=== PATIENT | female | born 1985 | race Caucasian/White ===

== ENCOUNTER 2016-11-30 20:43 | Emergency (ER) | payer OTHER ==
[~2016-11-30] VITALS: Ht 160 cm; Wt 59.4 kg
[2016-11-30 20:59] VITALS: BP 117/70
--- NOTE | 2016-11-30 22:42 | NUR ---
AMBULATED TO ER BED 8
--- NOTE | 2016-11-30 22:45 | NUR ---
Patient being evaluated by physician at bedside.
[2016-11-30] MEDS ORDERED: DICYCLOMINE HCL LIQUID 20 MG, ALUMINUM HYD/MAG/SIMETHICONE 30 ML, LIDOCAINE VISCOUS 2% ... PO ONE ×3 (22:55)
[2016-11-30] MEDS ORDERED: ONDANSETRON 4 MG ODT PO ONE (23:10)
[2016-11-30 23:18] LABS: HEMATOCRIT 35.8 % (36-48); HEMOGLOBIN 11.7 g/dL (12.0-16.0); MEAN CORPUSCULAR HEMOGLOBIN 30 pg (27-31); MEAN CORPUSCULAR HGB CONC 33 g/dL (33-37); MEAN CORPUSCULAR VOLUME 92 fL (80-94); PLATELET COUNT (AUTO) 196 K/uL (140-450); RED CELL DISTRIBUTION WIDTH 14.2 % (11.6-13.7); WHITE BLOOD COUNT (AUTO) 6.2 K/uL (4.8-10.8)
[2016-11-30] MEDS ORDERED: ONDANSETRON 4 MG ODT ONE (23:18)
[2016-11-30 23:29] LABS: ALBUMIN 3.8 g/dL (3.4-5.0); ANION GAP 10.5 (8-16); CARBON DIOXIDE 29.8 mmol/L (21-32); CREATININE 0.8 mg/dL (0.6-1.3); POTASSIUM 3.3 mmol/L (3.5-5.1); TOTAL BILIRUBIN 0.2 mg/dL (0.0-1.0)
--- NOTE | 2016-11-30 23:35 | NUR ---
31Y/F PT. PRESENTS TO ED WITH C/O ABDOMINAL PAIN X 2 DAYS. ALSO STATES FEELING NAUSEATED, NO DIARRHEA. NO MEDICAL HX. AAO X4, AMBULATORY WITH STEADY GAIT. RESPIRATIONS ROOM AIR, EVEN AND UNLABORED. ABDOMEN SOFT AND NON-TENDER. VSS, ER MD MADE AWARE OF PT. STATUS.
[2016-11-30 23:53] LABS: EOSINOPHILS % (MANUAL) 5 % (0-4); LYMPHOCYTES % (MANUAL) 47 % (20-46); MONOCYTES % (MANUAL) 8 % (5-12)
[2016-12-01] MEDS ORDERED: KETOROLAC 30 MG/ML VIAL IM ONE (00:10)
--- NOTE | 2016-12-01 02:04 | NUR ---
Patient discharged with v/s stable. Written and verbal after care instructions given and explained. Patient alert, oriented and verbalized understanding of instructions. Ambulatory with steady gait. All questions addressed prior to discharge. ID band removed. Patient advised to follow up with PMD. Rx of NORCO, ZOFRAN AND OMEPRAZOLE given. Patient educated on indication of medication including possible reaction and side effects. Opportunity to ask questions provided and answered.
[2016-12-01 02:05] VITALS: BP 130/74
== END 2016-12-01 02:05 | disposition home or self-care (01) ==
LOC: MED 20:43
DX: R11.2 Nausea with vomiting, unspecified (principal); K21.9 Gastro-esophageal reflux disease without esophagitis
CPT/HCPCS: 36415; 74176; 80053; 81002; 81025; 83690; 85025; 93005; 96372; 99285; J1885; S0119

== ENCOUNTER 2017-03-25 01:10 | Emergency (ER) | payer OTHER ==
[~2017-03-25] VITALS: Ht 162.6 cm; Wt 58.1 kg
[2017-03-25 01:13] VITALS: BP 103/70
[2017-03-25 01:23] VITALS: BP 103/70
--- NOTE | 2017-03-25 01:27 | NUR ---
PT TO ER OF CHAIR 3 VIA W/C
--- NOTE | 2017-03-25 02:00 | NUR ---
PATIENT LEFT WITHOUT BEING SEEN BY DR. ROBBINS. NO FURTHER CARE PROVIDED FOR PATIENT.
== END 2017-03-25 02:00 | disposition left against medical advice (07) ==
LOC: MED 01:10
DX: R10.9 Unspecified abdominal pain (principal); Z53.21 Procedure and treatment not carried out due to patient leaving prior to being seen by health care provider

== ENCOUNTER 2017-08-17 23:00 | Emergency (ER) | payer OTHER ==
[~2017-08-17] VITALS: Ht 160 cm; Wt 59.5 kg
[2017-08-17 23:11] VITALS: BP 146/88
--- NOTE | 2017-08-18 00:04 | NUR ---
PT AMBULATED TO BED 2
--- NOTE | 2017-08-18 00:13 | NUR ---
32Y/F PT. PRESENTS TO ED WITH C/O ABDOMINAL PAIN WITH N/V/D X 2 WKS. STATES PAIN AT LLQ, ALSO STATES SORE THROAT. AAOX4, AMBULATORY WITH STDEAY GAIT. RESPIRTAIONS ROOM AIR, EVEN AND UNLABORED. SKIN WARM/PINK/DRY. ABDOMEN SOFT, NO DISTENDED, ACTIVE BOWEL SOUND X4, STATES CRAMP PAIN 9/10. VSS, ER MD MADE AWARE OF PT. STATUS.
[2017-08-18] MEDS ORDERED: DICYCLOMINE HCL LIQUID 20 MG, ALUMINUM HYD/MAG/SIMETHICONE 30 ML, LIDOCAINE VISCOUS 2% ... PO ONE ×3 (00:25)
[2017-08-18] MEDS ORDERED: ONDANSETRON 4 MG ODT PO ONE (00:25)
[2017-08-18] MEDS ORDERED: KETOROLAC 30 MG/ML VIAL IM ONE (00:25)
[2017-08-18 00:34] LABS: BASOPHILS % (AUTO) 0.2 % (0.0-2.0); EOSINOPHILS % (AUTO) 0.1 % (0.0-4.0); HEMATOCRIT 34.2 % (36-48); HEMOGLOBIN 11.3 g/dL (12.0-16.0); LYMPHOCYTES % (AUTO) 14.1 % (20.5-51.1); MEAN CORPUSCULAR HEMOGLOBIN 30 pg (27-31); MEAN CORPUSCULAR HGB CONC 33 g/dL (33-37); MEAN CORPUSCULAR VOLUME 90.7 fL (80-94); MONOCYTES # (AUTO) 0.4 K/uL (0.8-1.0); NEUTROPHILS # (AUTO) 5.8 K/uL (1.8-7.7); NEUTROPHILS % (AUTO) 79.6 % (42.2-75.2); PLATELET COUNT (AUTO) 195 K/uL (140-450); RED BLOOD CELL COUNT(AUTO) 3.77 MIL/uL (4.20-5.40); RED CELL DISTRIBUTION WIDTH 14.4 % (11.6-13.7); WHITE BLOOD COUNT (AUTO) 7.3 K/uL (4.8-10.8)
[2017-08-18 00:43] LABS: ANION GAP 10.3 (8-16); CARBON DIOXIDE 28.6 mmol/L (21-32); CREATININE 0.8 mg/dL (0.6-1.3); POTASSIUM 3.9 mmol/L (3.5-5.1)
[2017-08-18 00:50] LABS: TOTAL BILIRUBIN 0.2 mg/dL (0.0-1.0)
--- NOTE | 2017-08-18 00:53 | NUR ---
PO CHALLENGE STARTED, PT GIVEN WATER, WILL CONTINUE TO MONITOR.
--- NOTE | 2017-08-18 01:40 | NUR ---
AWAITING DISCHARGE PAPERWORK FROM EDMD
[2017-08-18 01:54] VITALS: BP 119/74
--- NOTE | 2017-08-18 01:54 | NUR ---
Patient discharged with v/s stable. Written and verbal after care instructions given and explained. Patient alert, oriented and verbalized understanding of instructions. Ambulatory with steady gait. All questions addressed prior to discharge. ID band removed. Patient advised to follow up with PMD. Rx of MYLANTA given. Patient educated on indication of medication including possible reaction and side effects. Opportunity to ask questions provided and answered.
== END 2017-08-18 01:54 | disposition home or self-care (01) ==
LOC: MED 23:00
DX: R10.9 Unspecified abdominal pain (principal); R19.7 Diarrhea, unspecified; R11.10 Vomiting, unspecified; K21.9 Gastro-esophageal reflux disease without esophagitis
CPT/HCPCS: 36415; 80053; 81002; 81025; 83690; 85025; 96372; 99284; J1885; S0119

== ENCOUNTER 2017-12-04 15:54 | Emergency (ER) | payer OTHER ==
[~2017-12-04] VITALS: Ht 160 cm; Wt 57.2 kg
[2017-12-04 16:02] VITALS: BP 112/74
[2017-12-04 17:13] VITALS: BP 112/74
== END 2017-12-04 17:15 | disposition home or self-care (01) ==
LOC: MED 15:54
DX: K41.90 Unilateral femoral hernia, without obstruction or gangrene, not specified as recurrent (principal); K21.9 Gastro-esophageal reflux disease without esophagitis
CPT/HCPCS: 81002; 81025; 99282

== ENCOUNTER 2018-09-10 17:08 | Emergency (ER) | payer OTHER ==
[~2018-09-10] VITALS: Ht 162.6 cm; Wt 59.0 kg
[2018-09-10 17:12] VITALS: BP 118/73
--- NOTE | 2018-09-10 17:25 | NUR ---
C/O SORE THOAT SEVERAL WEEKS, + HEADACHE, GETTING WORSE. . DENIES N/V/D; SKIN IS PINK/WARM/DRY; AAOX4 WITH EVEN AND STEADY GAIT; LUNGS CLEAR BL; HR EVEN AND REGULAR; PT DENIES ANY FEVER, CP, SOB, OR COUGH AT THIS TIME; PATIENT STATES PAIN OF 5/10 AT THIS TIME; VSS; PATIENT POSITIONED FOR COMFORT; HOB ELEVATED; BEDRAILS UP X2; BED DOWN. ER MD MADE AWARE OF PT STATUS.
--- NOTE | 2018-09-10 18:09 | NUR ---
Dr. Donovan evaluating patient at bedside.
[2018-09-10] MEDS ORDERED: ACETAMINOPHEN EXTRA STRENGTH 500 MG TAB PO ONE (18:20)
[2018-09-10] MEDS ORDERED: IBUPROFEN 600 MG TAB PO ONE (18:20)
[2018-09-10] MEDS ORDERED: DEXAMETHASONE 10 MG/ML VIAL IM ONE (18:20)
[2018-09-10 18:54] VITALS: BP 120/70
--- NOTE | 2018-09-10 18:56 | NUR ---
Patient discharged with v/s stable. Written and verbal after care instructions given and explained. Patient alert, oriented and verbalized understanding of instructions. Ambulatory with steady gait. All questions addressed prior to discharge. ID band removed. Patient advised to follow up with PMD. Rx of IBUPROFEN AND PENICILLIN VK given. Patient educated on indication of medication including possible reaction and side effects. Opportunity to ask questions provided and answered.
== END 2018-09-10 18:56 | disposition home or self-care (01) ==
LOC: MED 17:08
DX: J02.9 Acute pharyngitis, unspecified (principal); R51 Headache; K58.9 Irritable bowel syndrome, unspecified; F17.200 Nicotine dependence, unspecified, uncomplicated
CPT/HCPCS: 81025; 96372; 99283; J1100

== ENCOUNTER 2018-11-19 12:02 | Emergency (ER) | payer OTHER ==
[~2018-11-19] VITALS: Ht 160 cm; Wt 61.2 kg
[2018-11-19 12:12] VITALS: BP 114/72
--- NOTE | 2018-11-19 12:14 | NUR ---
PT AMBULATED TO BED
--- NOTE | 2018-11-19 12:30 | NUR ---
PT C/O VAGINAL BLEEDING FOR ONE MONTH , CONSTANT SHARP LLQ ABDOMINAL PAIN X2 WEEKS, BACK PAIN, NAUSEA, DIZZINESS. PATIENT STATES PAIN OF 8/10 AT THIS TIME; VSS; PATIENT POSITIONED FOR COMFORT; HOB ELEVATED; BEDRAILS UP X1; BED DOWN. ER MD MADE AWARE OF PT STATUS.
[2018-11-19 13:39] LABS: BASOPHILS % (AUTO) 0.6 % (0.0-2.0); EOSINOPHILS # (AUTO) 0.1 K/uL (0-0.4); EOSINOPHILS % (AUTO) 2.6 % (0.0-4.0); HEMATOCRIT 34.9 % (36-48); HEMOGLOBIN 11.5 g/dL (12.0-16.0); LYMPHOCYTES # (AUTO) 1.4 K/uL (2.5-16.5); LYMPHOCYTES % (AUTO) 36.9 % (20.5-51.1); MEAN CORPUSCULAR HEMOGLOBIN 30 pg (27-31); MEAN CORPUSCULAR HGB CONC 33 g/dL (33-37); MEAN CORPUSCULAR VOLUME 91.6 fL (80-94); MONOCYTES # (AUTO) 0.4 K/uL (0.8-1.0); MONOCYTES % (AUTO) 9.9 % (1.7-9.3); NEUTROPHILS # (AUTO) 1.9 K/uL (1.8-7.7); PLATELET COUNT (AUTO) 197 K/uL (140-450); RED BLOOD CELL COUNT(AUTO) 3.81 MIL/uL (4.20-5.40); RED CELL DISTRIBUTION WIDTH 14.8 % (11.6-13.7); WHITE BLOOD COUNT (AUTO) 3.9 K/uL (4.8-10.8)
[2018-11-19 14:26] VITALS: BP 110/69
--- NOTE | 2018-11-19 14:26 | NUR ---
Patient discharged with v/s stable. Written and verbal after care instructions given and explained. Patient alert, oriented and verbalized understanding of instructions. Ambulatory with steady gait. All questions addressed prior to discharge. ID band removed. Patient advised to follow up with PMD. Rx of Norethindrone given. Patient educated on indication of medication including possible reaction and side effects. Opportunity to ask questions provided and answered.
== END 2018-11-19 14:26 | disposition home or self-care (01) ==
LOC: MED 12:02
DX: N93.9 Abnormal uterine and vaginal bleeding, unspecified (principal); K21.9 Gastro-esophageal reflux disease without esophagitis; M54.9 Dorsalgia, unspecified
CPT/HCPCS: 36415; 76856; 81002; 81025; 85025; 99284; Q0092